=== PATIENT | female | born 1965 | race Caucasian/White ===

== ENCOUNTER 2023-06-25 09:06 | Emergency (ER) | payer MEDICARE, MEDICAID ==
[2023-06-25 09:30] LABS: BASOPHILS ABSOLUTE AUTO 0.03 K/uL (0.00-0.20); BASOPHILS PERCENT AUTO 0.3 % (0.0-2.0); EOSINOPHILS ABSOLUTE AUTO 0.23 K/uL (0.00-0.50); EOSINOPHILS PERCENT AUTO 2.7 % (0.0-5.0); HEMATOCRIT 36.2 % (34.0-46.0); HEMOGLOBIN 10.8 g/dL (11.7-15.5); LYMPHOCYTES PERCENT AUTO 10.4 % (10.0-50.0); MEAN CORPUSCULAR HGB CONC 29.8 g/dL (31.7-36.0); MEAN CORPUSCULAR VOLUME 93.8 fL (84.0-98.0); MONOCYTES PERCENT AUTO 9.3 % (2.0-14.0); NEUTROPHILS ABSOLUTE AUTO 6.67 K/uL (1.40-7.00); NEUTROPHILS PERCENT AUTO 77.3 % (45.0-80.0); PLATELET COUNT,PLT 343 K/uL (150-350); RED BLOOD CELL COUNT 3.86 M/uL (3.77-5.09); WHITE BLOOD CELL COUNT,WBC 8.6 K/uL (4.0-10.2)
[2023-06-25] MEDS ORDERED: Glucagon,Human Recombinant 1 MG Vial IM PRN (10:30)
[2023-06-25 10:44] LABS: ALANINE AMINOTRANSFERASE,ALT 7 U/L (12-78); ALBUMIN 2.3 g/dL (3.4-5.0); ALKALINE PHOSPHATASE 94 IU/L (46-116); ANION GAP 23.5 meq/L (7-15); ASPARTATE AMNIOTRANSFERASE,AST 9 U/L (15-37); BILIRUBIN TOTAL 0.4 mg/dL (0.2-1.0); CALCIUM 9.4 mg/dL (8.5-10.1); CARBON DIOXIDE,CO2 18.5 mmol/L (21.0-32.0); CHLORIDE,CL 105 mmol/L (98-107); GLUCOSE RANDOM 101 mg/dL (70-99); MAGNESIUM 2.3 mg/dL (1.8-2.4); PROTEIN TOTAL,TP 8.9 g/dL (6.4-8.2); SODIUM,NA 139 mmol/L (136-145)
[2023-06-25 10:45] LABS: BLOOD UREA NITROGEN,BUN 112 mg/dL (7-18); ESTIMATED GFR 2 mL/min (>=60)
[2023-06-25] MEDS: Insulin Regular, Human 100 Units/ML 3 ML Vial IV ONE (11:03)
[2023-06-25] MEDS: 50% Dextrose in Water 50 ML Syringe IVPUSH ONE (11:06)
[2023-06-25] MEDS: Sodium Chloride 0.9% 1,000 ML IV ONE ×2 (11:18→13:29)
[2023-06-25] MEDS: Calcium Gluc in NaCl, ISO-OSM 1,000 MG in Premix Bag 1 BAG IV ONE (11:20)
[2023-06-25] MEDS: Sodium Zirconium Cyclosilicate 10 GM Packet PO SCH (11:37)
[2023-06-25 12:15] LABS: APPEARANCE,URINE TURBID; BILIRUBIN,URINE NEGATIVE (NEGATIVE); COLOR,URINE YELLOW; GLUCOSE,URINE NEGATIVE (NEGATIVE); KETONES,URINE NEGATIVE (NEGATIVE); LEUKOCYTE ESTERASE,URINE LARGE (NEGATIVE); NITRITE,URINE POSITIVE (NEGATIVE); OCCULT BLOOD,URINE LARGE (NEGATIVE); PROTEIN,URINE 100 mg/dL (NEGATIVE); UROBILINOGEN,URINE 0.2 E.U./dL (0.2-1.0)
[2023-06-25] MEDS: Furosemide 40 MG/4 ML VIAL IVPUSH ONE (12:25)
[2023-06-25] MEDS: Sodium Bicarbonate 8.4% 50 MEQ/50 ML Syringe ONE (12:28)
[2023-06-25] MEDS: Sodium Bicarbonate 8.4% 50 MEQ/50 ML Syringe IVPUSH ONE (12:28)
[2023-06-25 12:34] LABS: BACTERIA,URINE MANY /HPF (NONE TO FEW); RBC,URINE PACKED /HPF
[2023-06-25] MEDS: diphenhydrAMINE 50 MG/ML SDV IVPUSH ONE (12:45)
[2023-06-25 15:16] VITALS: BP 108/51; PULSE 79
== END 2023-06-25 13:45 ==
LOC: LL.ED 09:06
DX: E87.5 Hyperkalemia (principal); N17.9 Acute kidney failure, unspecified; N39.0 Urinary tract infection, site not specified; I11.0 Hypertensive heart disease with heart failure; I50.9 Heart failure, unspecified; K21.9 Gastro-esophageal reflux disease without esophagitis; E78.00 Pure hypercholesterolemia, unspecified; E11.9 Type 2 diabetes mellitus without complications; E66.9 Obesity, unspecified; I48.91 Unspecified atrial fibrillation; Z86.16 Personal history of COVID-19; Z79.02 Long term (current) use of antithrombotics/antiplatelets; Z79.4 Long term (current) use of insulin; Z79.899 Other long term (current) drug therapy; Z88.1 Allergy status to other antibiotic agents
CPT/HCPCS: 36415; 51702; 71045; 80053; 81001; 82947; 83605; 83735; 84132; 85025; 87086; 87088; 87186; 93005; 93010; 96361; 96365; 96375; 99284; 99285-25; A9270-GY; J0612; J1200; J1815-GY; J1940; J3490; J7030